=== PATIENT | female | born 1980 | race Caucasian/White ===

== ENCOUNTER 2016-07-25 00:36 | Emergency (ER) | payer MEDICAID, OTHER ==
[2016-07-25 00:36] VITALS: BMI 45.7
--- NOTE | 2016-07-25 02:13 | C.PDOC ---
History Of Present Illness A 35 year old female, whose past medical history includes chronic lower back pain s/p multiple lumbar spinal surgeries, presents to the emergency room with complaints of bilateral lower back pain for the past few days. Patient reports that the pain is constant, aching, radiating to the bilateral thighs and bilateral hips. Patient states that the pain has been worsening over the past few days. Patient notes that she was on the Fentanyl patch for a long time but her insurance no longer covers it. Patient has been off of her meds for the past few weeks and sees a pain management doctor in [facility], who is not giving her any pain meds at this time. Patient admits, similar sx in past and c/ w chronic lower back pain. Patient denies fever, chills, abdominal pain, N/V, incontinence, saddle anesthesia, UTI symptoms, denies bilateral extremity weakness, sensory/vascular deficits. AMbulate to ED for evaluation, not in any apparent distress, Time Seen by Provider: 07/25/16 01:46 Chief Complaint (Nursing): Lower Extremity Problem/Injury History Per: Patient History/Exam Limitations: no limitations Onset/Duration Of Symptoms: Days Current Symptoms Are (Timing): Still Present Severity: Mild Recent travel outside of the [place]: No Past Medical History Reviewed: Historical Data, Nursing Documentation, Vital Signs Vital Signs: Last Vital Signs Temp 98.0 F 07/25/16 01:32 Pulse 97 H 07/25/16 01:32 Resp 16 07/25/16 01:32 BP 128/85 07/25/16 01:32 Pulse Ox 99 07/25/16 02:23 - Medical History PMH: Anemia, Anxiety, Back Problems, Diabetes, HTN, Hypercholesterolemia, Chronic Kidney Disease (kidney infection), Chronic Pain Surgical History: Back Surgery (X3) - [facility] Procedures INTRODUCTION OF SERUM/TOX/VACCINE INTO MUSCLE, PERC APPROACH (04/03/15) Family History: States: Unknown Family Hx - Social History Hx Tobacco Use: No Hx Alcohol Use: No Hx Substance Use: No - Immunization History Hx Tetanus Toxoid Vaccination: No Hx Influenza Vaccination: Yes Hx Pneumococcal Vaccination: No Review Of Systems Constitutional: Negative for: Fever Gastrointestinal: Negative for: Abdominal Pain Genitourinary: Negative for: Incontinence Musculoskeletal: Positive for: Back Pain (Bilateral lower back pain radiating to the bilateral hips and thighs. ) Neurological: Negative for: Weakness, Numbness Physical Exam - Physical Exam Appears: Well, Non-toxic Skin: Normal Color, Warm, Dry Head: Atraumatic, Normacephalic Neck: Normal ROM, Supple Gastrointestinal/Abdominal: Soft, No Tenderness, No Guarding, No Rebound Back: Paraspinal Tenderness (Bilateral paraspinal lumbar tenderness) Extremity: Normal ROM, No Tenderness ED Course And Treatment - Laboratory Results Urine POC: Negative O2 Sat by Pulse Oximetry: 99 Pulse Ox Interpretation: Normal Progress Note: On re-eavluation, pt is afebrile hemodynamicaly stable. NOn- toxic. AMbulatory in ED with stable gait. Tolerate Po well in ED. ABd: benign. BAck: (-) CVA tenderness. Neurologicaly intact. UA results review and c/w UTI. pt has clinical findings c/w chronic lwoer back pain, UTI. pt advised. ref. to F/u with PMD In 2-3 days for re-eavl. return if any new changes. Medical Decision Making Medical Decision Making: Plan: -- Urine Preg -- Urinalysis Disposition Counseled Patient/Family Regarding: Studies Performed, Diagnosis, Need For Followup, Rx Given - Disposition Referrals: [facility] at [facility] [Outside] Disposition: HOME/ ROUTINE Disposition Time: 03:03 Condition: STABLE Additional Instructions: Encourage fluids Cranberry supplement Take medication as prescribed Follow up with PMD and PM in 1-2 days for re-evaluation. Return to ED if any worsening or new changes. Prescriptions: Ciprofloxacin [Cipro] 1 tab PO BID #14 tab traMADol [Ultram] 50 mg PO TID #7 tab Instructions: Urinary Tract Infection in Women (ED), Chronic Back Pain (ED) - Clinical Impression Clinical Impression: UTI (urinary tract infection), Chronic pain - Scribe Statement The provider has reviewed the documentation as recorded by the Scribshetlon Llyod All medical record entries made by the Kylieibshelton were at my direction and personally dictated by me. I have reviewed the chart and agree that the record accurately reflects my personal performance of the history, physical exam, medical decision making, and the department course for this patient. I have also personally directed, reviewed, and agree with the discharge instructions and disposition.
[2016-07-25 02:57] LABS: RBC URINE 7 /hpf (0-3); URINE BACTERIA OCC (<OCC); URINE BILIRUBIN NEGATIVE (NEGATIVE); URINE BLOOD NEGATIVE (NEGATIVE); URINE COLOR Amber (YELLOW); URINE GLUCOSE (UA) NORMAL (Normal); URINE KETONE NEGATIVE (NEGATIVE); URINE LEUKOCYTE ESTERASE 2+ Leu/uL (Negative); URINE PROTEIN 1+ mg/dL (NEGATIVE); URINE UROBILINOGEN NORMAL mg/dL (0.2-1.0); WBC URINE 35 /hpf (0-5)
[2016-07-25 03:32] VITALS: BP 120/86; PULSE 56; RESP 20; TEMP 98.1; O2SAT 97
== END 2016-07-25 03:31 | disposition home or self-care (01) ==
LOC: C.ER 00:36
DX: N39.0 Urinary tract infection, site not specified (principal); G89.29 Other chronic pain; M54.5 Low back pain

== ENCOUNTER 2016-08-10 13:19 | Emergency (ER) | payer OTHER ==
[2016-08-10 13:20] VITALS: BMI 45.7
[2016-08-10 14:52] VITALS: BP 150/91; PULSE 100; RESP 18; TEMP 98.1; O2SAT 99
[2016-08-10 15:25] LABS: RBC URINE 17 /hpf (0-3); URINE BILIRUBIN NEGATIVE (NEGATIVE); URINE BLOOD 1+ (NEGATIVE); URINE COLOR Yellow (YELLOW); URINE GLUCOSE (UA) NORMAL (Normal); URINE KETONE TRACE mg/dL (NEGATIVE); URINE LEUKOCYTE ESTERASE 2+ Leu/uL (Negative); URINE PROTEIN 2+ mg/dL (NEGATIVE); URINE UROBILINOGEN NORMAL mg/dL (0.2-1.0); WBC URINE 38 /hpf (0-5)
--- NOTE | 2016-08-10 15:41 | C.PDOC ---
History Of Present Illness 35 yo female w/PMHx of HTN, NIDDM, morbid obesity come in for evaluation of Left flank pain gradually developed since yesterday associated with urinary frequency, hesitance. Otherwise, pt denies fever, chills, headache, dizziness, neck pain, sore throat, CP, SOB, dyspnea, diaphoresis, abd. pain, V/D, hematuria , vaginal irritation or discharge. Ambulate to ED for evaluation, not in any apparent distress. Time Seen by Provider: 08/10/16 15:12 Chief Complaint (Nursing): Female Genitourinary History Per: Patient History/Exam Limitations: no limitations Onset/Duration Of Symptoms: Days (1) Past Medical History Reviewed: Historical Data, Nursing Documentation, Vital Signs Vital Signs: Last Vital Signs Temp 98.1 F 08/10/16 14:50 Pulse 100 H 08/10/16 14:50 Resp 18 08/10/16 14:50 BP 150/91 H 08/10/16 14:50 Pulse Ox 99 08/10/16 16:32 - Medical History PMH: Anemia, Anxiety, Back Problems, Diabetes, HTN, Hypercholesterolemia, Chronic Kidney Disease (kidney infection), Chronic Pain Surgical History: Back Surgery (X3) - [facility] Procedures INTRODUCTION OF SERUM/TOX/VACCINE INTO MUSCLE, PERC APPROACH (04/03/15) Family History: States: No Known Family Hx - Social History Hx Tobacco Use: No Hx Alcohol Use: No Hx Substance Use: No - Immunization History Hx Tetanus Toxoid Vaccination: No Hx Influenza Vaccination: Yes Hx Pneumococcal Vaccination: No Review Of Systems Except As Marked, All Systems Reviewed And Found Negative. Constitutional: Negative for: Fever, Chills ENT: Positive for: Throat Pain (Sore throat) Cardiovascular: Negative for: Chest Pain Respiratory: Negative for: Shortness of Breath Gastrointestinal: Negative for: Vomiting, Abdominal Pain, Diarrhea Genitourinary: Negative for: Hematuria, Vaginal Discharge Musculoskeletal: Positive for: Back Pain (Left flank pain ). Negative for: Neck Pain Neurological: Negative for: Headache, Dizziness Physical Exam - Physical Exam Appears: Well, No Acute Distress Skin: Normal Color, Warm, Dry Eye(s): bilateral: Normal Inspection, PERRL, EOMI Nose: Normal Throat: Normal Neck: Normal Cardiovascular: Rhythm Regular Respiratory: Normal Breath Sounds Gastrointestinal/Abdominal: Normal Exam Back: Normal Inspection Extremity: Normal ROM ED Course And Treatment - Laboratory Results Urine POC: Negative O2 Sat by Pulse Oximetry: 99 Pulse Ox Interpretation: Normal Progress Note: On re-eval, pt is afebrile, hemodynamicaly stable. NOn-toxic. Tolerate PO well in ED. ENT: no acute findings. Neck: (-) meninegal sign . Lungs : CTA B/L, BS equal B/L. Abd: benign. Back: (-) CVA tenderness. Neurologicaly intact. UA results review and c/w UTI, trace ketones, Glu (-). Pt has clinical findings c/w UTI, hx of NIDDM. Pt received tx in ED with mod improvement in sx. Pt advised and ref. to F/u with PMD in 2-3 days for re-eval. return if any new changes. Medical Decision Making Medical Decision Making: PLAN: * HCG Urine * Urinalysis * Cipro PO * Pyridium PO * Tramadol PO Disposition Counseled Patient/Family Regarding: Studies Performed, Diagnosis, Need For Followup, Rx Given - Disposition Referrals: [facility] [Outside] [facility] [Outside] Disposition: HOME/ ROUTINE Disposition Time: 15:39 Condition: STABLE Additional Instructions: Encourage fluids Take medication as prescribed Follow up with PMD, [employer] In 2-3 days for re-evaluation. Return to ED if any worsening or new changes. Prescriptions: Ciprofloxacin [Cipro] 1 tab PO BID #14 tab Cranberry 500 mg PO DAILY #14 capsule Phenazopyridine [Phenazopyridine HCl] 100 mg PO Q12 #6 tab Instructions: Urinary Tract Infection in Women (ED) - Clinical Impression Clinical Impression: UTI (urinary tract infection) - PA / HOSPITALITY AMBASSADOR / Resident Statement MD/DO has reviewed & agrees with the documentation as recorded. - Scribe Statement The provider has reviewed the documentation as recorded by the Scribe Eugenia Deleno All medical record entries made by the Scribe were at my direction and personally dictated by me. I have reviewed the chart and agree that the record accurately reflects my personal performance of the history, physical exam, medical decision making, and the department course for this patient. I have also personally directed, reviewed, and agree with the discharge instructions and disposition.
== END 2016-08-10 15:56 | disposition home or self-care (01) ==
LOC: C.ER 13:19
DX: N39.0 Urinary tract infection, site not specified (principal)

== ENCOUNTER 2016-08-10 22:14 | Emergency (ER) | payer OTHER ==
[2016-08-10 22:15] VITALS: BMI 45.7
[2016-08-10 22:36] VITALS: TEMP 99.2; O2SAT 97
[2016-08-10 23:35] VITALS: BP 123/72
[2016-08-10 23:40] VITALS: PULSE 99; RESP 18
--- NOTE | 2016-08-10 23:49 | C.PDOC ---
Time Seen by Provider: 08/10/16 23:42 Chief Complaint (Nursing): Palpitations Past Medical History Vital Signs: Last Vital Signs Temp 99.2 F 08/10/16 22:24 Pulse 99 H 08/10/16 23:30 Resp 18 08/10/16 23:30 BP 123/72 08/10/16 23:00 Pulse Ox 97 08/10/16 22:24 - Medical History PMH: Anemia, Anxiety, Back Problems, Diabetes, HTN, Hypercholesterolemia, Chronic Kidney Disease (kidney infection), Chronic Pain Surgical History: Back Surgery (X3) - [facility] Procedures INTRODUCTION OF SERUM/TOX/VACCINE INTO MUSCLE, PERC APPROACH (04/03/15) Family History: States: Unknown Family Hx - Social History Hx Tobacco Use: No Hx Alcohol Use: No Hx Substance Use: No - Immunization History Hx Tetanus Toxoid Vaccination: No Hx Influenza Vaccination: Yes Hx Pneumococcal Vaccination: No ED Course And Treatment O2 Sat by Pulse Oximetry: 97 Disposition - Disposition Disposition: LEFT W/O BEING SEEN - ER ONLY Disposition Time: 00:00 Condition: UNKNOWN - Clinical Impression Clinical Impression: Diagnosis unknown Addendum Addendum: 08/10/16 23:46 Pt left without being seen by me Any other information on this chart was not recorded by me, I am unable to removed my name from the charge due to [employer] issues
== END 2016-08-10 23:30 | disposition left against medical advice (07) ==
LOC: C.ER 22:14
DX: R00.2 Palpitations (principal); Z02.9 Encounter for administrative examinations, unspecified

== ENCOUNTER 2016-08-13 05:27 | Emergency (ER) | payer OTHER ==
[2016-08-13 05:27] VITALS: BMI 45.7
[2016-08-13] MEDS ORDERED: Sodium Chloride 0.9% 1,000 ML IV STA (05:57)
[2016-08-13] MEDS ORDERED: Sodium Chloride 0.9% 1,000 ML ONE (05:57)
[2016-08-13 06:08] LABS: RBC URINE 4 /hpf (0-3); URINE BACTERIA OCC (<OCC); URINE BILIRUBIN NEGATIVE (NEGATIVE); URINE BLOOD NEGATIVE (NEGATIVE); URINE COLOR Amber (YELLOW); URINE GLUCOSE (UA) NORMAL (Normal); URINE KETONE 1+ mg/dL (NEGATIVE); URINE LEUKOCYTE ESTERASE 2+ Leu/uL (Negative); URINE PROTEIN 1+ mg/dL (NEGATIVE); WBC URINE 20 /hpf (0-5)
[2016-08-13 06:09] LABS: BASO % 0.6 % (0.0-2.0); EOS % 0.1 % (0.0-4.0); HEMATOCRIT 29.5 % (34.0-47.0); LYMPH % 24.5 % (20.0-40.0); MEAN CELL VOLUME 70.1 fL (81.0-99.0); MEAN PLATELET VOLUME 8.1 fL (7.2-11.7); MONO # 0.5 K/uL (0.0-0.8); MONO % 6.6 % (0.0-10.0)
[2016-08-13 06:26] LABS: CHLORIDE 100 mmol/L (98-107); POTASSIUM 3.4 mmol/L (3.6-5.2); SODIUM 140 mmol/L (132-148)
[2016-08-13 06:28] LABS: BILIRUBIN,TOTAL 0.7 mg/dL (0.2-1.3); CARBON DIOXIDE 24 mmol/L (22-30); GFR AFRICAN-AMERICAN > 60
[2016-08-13 06:29] LABS: ALB/GLOB RATIO 1.4 (1.0-2.1); ALKALINE PHOSPHATASE 85 U/L (38-126); ALT/SGPT 22 U/L (9-52); AST/SGOT 33 U/L (14-36); BLOOD UREA NITROGEN 9 mg/dL (7-17); CALCIUM 8.9 mg/dl (8.6-10.4); GLUCOSE,RANDOM 135 mg/dL (65-105); TOTAL PROTEIN 8.6 g/dL (6.3-8.3)
--- NOTE | 2016-08-13 06:43 | C.PDOC ---
History Of Present Illness 35 year old pt presents to ED c/o vomiting that began yesterday. Pt reports vomiting started after taking Cipro and Pyridium after her previous visit at [facility] ED. Pt reports that she diagnosed with an UTI when she was seen Wednesday at [facility] ED. Pt denies fever, chills, diarrhea, abdominal pain, hematemesis, dizziness, or any other complaints. Pt also notes chronic lower back pain. Time Seen by Provider: 08/13/16 05:46 Chief Complaint (Nursing): GI Problem History Per: Patient History/Exam Limitations: no limitations Onset/Duration Of Symptoms: Days Current Symptoms Are (Timing): Still Present Severity: Mild Associated Symptoms: denies: Fever, Chills, Diarrhea Past Medical History Reviewed: Historical Data, Nursing Documentation, Vital Signs Vital Signs: Last Vital Signs Temp 98.8 F 08/13/16 05:35 Pulse 75 08/13/16 05:35 Resp 14 08/13/16 05:35 BP 144/85 08/13/16 05:35 Pulse Ox 97 08/13/16 06:50 - Medical History PMH: Anemia, Anxiety, Back Problems, Diabetes, HTN, Hypercholesterolemia, Chronic Kidney Disease (kidney infection), Chronic Pain Surgical History: Back Surgery (X3) - [facility] Procedures INTRODUCTION OF SERUM/TOX/VACCINE INTO MUSCLE, PERC APPROACH (04/03/15) Family History: States: Unknown Family Hx - Social History Hx Tobacco Use: No Hx Alcohol Use: No Hx Substance Use: No - Immunization History Hx Tetanus Toxoid Vaccination: No Hx Influenza Vaccination: Yes Hx Pneumococcal Vaccination: No Review Of Systems Except As Marked, All Systems Reviewed And Found Negative. Constitutional: Negative for: Fever, Chills Gastrointestinal: Positive for: Vomiting. Negative for: Diarrhea, Hematemesis Neurological: Negative for: Dizziness Physical Exam - Physical Exam Appears: Non-toxic, No Acute Distress Skin: Warm, Dry Head: Atraumatic, Normacephalic Eye(s): bilateral: Normal Inspection Cardiovascular: Rhythm Regular, No Murmur Respiratory: Normal Breath Sounds, No Rales, No Rhonchi, No Wheezing Gastrointestinal/Abdominal: Soft, No Tenderness Neurological/Psych: Oriented x3, Normal Speech, Normal Cognition ED Course And Treatment - Laboratory Results Result Diagrams: 08/13/16 06:06 08/13/16 06:06 O2 Sat by Pulse Oximetry: 97 (Room air) Pulse Ox Interpretation: Normal Progress Note: Plans: IV fluids, zofran were given. Pt is to be reassess and disposition. Disposition Counseled Patient/Family Regarding: Diagnosis - Disposition Disposition Time: 07:02 Condition: STABLE - Clinical Impression Clinical Impression: UTI (urinary tract infection) - Scribe Statement The provider has reviewed the documentation as recorded by the Scribe Dmitry fitch All medical record entries made by the Scribe were at my direction and personally dictated by me. I have reviewed the chart and agree that the record accurately reflects my personal performance of the history, physical exam, medical decision making, and the department course for this patient. I have also personally directed, reviewed, and agree with the discharge instructions and disposition. Physician Patient Turnover Patient Signed Over To: Annmarie Ghotra Handoff Comments: Pending Reevaluation and dispo
[2016-08-13 07:27] VITALS: PULSE 74
[2016-08-13 08:39] VITALS: BP 141/91; RESP 20; TEMP 98.3; O2SAT 100
== END 2016-08-13 08:37 | disposition home or self-care (01) ==
LOC: C.ER 05:27
DX: N39.0 Urinary tract infection, site not specified (principal)
CPT/HCPCS: 80053; 81001; 83690; 85025; 96361; 96374; 96375; 99285; J1885; J2405; J7040

== ENCOUNTER 2017-08-24 05:43 | Inpatient (IN) | payer MEDICAID, OTHER ==
[2017-08-24 05:44] VITALS: BMI 45.7
--- NOTE | 2017-08-24 06:09 | C.PDOC ---
History Of Present Illness 36 y/o female with chronic low back pain, presents to the ED with multiple complaints. Patient reports her back pain has been maintained on duragesic patches for the past 1.5 years. She states there was a miscommunication with her PMD and she has been off the patches for the past week. Now presenting with withdrawal symptoms including anxiety, chest tightness, generalized muscle aches , inability to focus, sweats. (Christina Llamas) History Per: Patient History/Exam Limitations: no limitations Onset/Duration Of Symptoms: Hrs Current Symptoms Are (Timing): Still Present Time Seen by Provider: 08/24/17 06:00 Chief Complaint (Nursing): Chest Pain Past Medical History Reviewed: Historical Data, Nursing Documentation, Vital Signs - Medical History PMH: Anemia, Anxiety, Back Problems, Diabetes, HTN, Hypercholesterolemia, Chronic Kidney Disease (kidney infection), Chronic Pain Surgical History: Back Surgery (X3) Family History: States: Unknown Family Hx - Social History Hx Tobacco Use: No Hx Alcohol Use: No Hx Substance Use: No - Immunization History Hx Tetanus Toxoid Vaccination: No Hx Influenza Vaccination: Yes Hx Pneumococcal Vaccination: No Vital Signs: Last Vital Signs Temp 98.6 F 08/28/17 06:29 Pulse 83 08/28/17 06:29 Resp 18 08/28/17 06:29 BP 118/66 08/28/17 06:29 Pulse Ox 97 08/28/17 06:29 - [facility] Procedures INTRODUCTION OF SERUM/TOX/VACCINE INTO MUSCLE, PERC APPROACH (04/03/15) Review Of Systems Except As Marked, All Systems Reviewed And Found Negative. Constitutional: Positive for: Sweats, Other (Generalized myalgias, especially to the abdomen, chest, and thighs). Negative for: Fever, Chills Cardiovascular: Positive for: Chest Pain Psych: Positive for: Anxiety, Withdrawal (from opiates) Physical Exam - Physical Exam Appears: Other (Writhing on stretcher, very anxious appearing, morbidly obese) Skin: Warm, Dry, No Diaphoretic Head: Atraumatic, Normacephalic Eye(s): bilateral: Normal Inspection, PERRL, EOMI Nose: Normal Oral Mucosa: Moist Neck: Normal ROM, Supple Chest: Symmetrical Cardiovascular: Rhythm Regular, No Murmur, Other (S1,S2 are wnl) Respiratory: No Rales, No Rhonchi, No Wheezing, Other (CTA bilaterally) Gastrointestinal/Abdominal: Soft, No Tenderness, Guarding (voluntary), No Rebound Extremity: Bilateral: Atraumatic (with no evidence of IVDA), Normal Color And Temperature, Normal ROM Neurological/Psych: Oriented x3, Normal Speech, No Other (focal deficits) ED Course And Treatment - Laboratory Results Result Diagrams: 08/25/17 08:01 08/26/17 11:10 ECG: Interpreted By Me, Viewed By Me ECG Rhythm: Sinus Rhythm (at 106 bpm, with nonspecific ST/T wave changes, no ectopy) O2 Sat by Pulse Oximetry: 97 (RA) Pulse Ox Interpretation: Normal Medical Decision Making Medical Decision Making: Impression: Opioid withdrawal Plan: * Clonidine 0.1 mg P * Ativan 2 mg IV * Compazine 10 mg IM * IVF hydration (Christina Llamas) Disposition - Disposition Disposition Time: 06:46 - Disposition Disposition: HOME/ ROUTINE Condition: FAIR - Clinical Impression Clinical Impression: Chest pain - Scribe Statement The provider has reviewed the documentation as recorded by the Scribe (Ktae Banuelos) - Scribe Statement Provider Attestation: All medical record entries made by the Scribe were at my direction and personally dictated by me. I have reviewed the chart and agree that the record accurately reflects my personal performance of the history, physical exam, medical decision making, and the department course for this patient. I have also personally directed, reviewed, and agree with the discharge instructions and disposition. (Christina Llamas) Addendum Addendum: 08/24/17 08:05 Patient endorsed to me by Dr. Llamas at the end of his shift. Patient with Chronic back pain, disk surgeries on duragesic patches, recently not approved by her PMD. Patient flailing in the ED c/o feeling jittery, has not had patches for a week. States her "kidney hurts", states recent kidney infection, no fever, no nvd, no abdominal pain. On exam: obese chest clear restless cooperative Plan Ativan offer detox, evaluate UA/Labs (Christina Anna)
[2017-08-24] MEDS ORDERED: Sodium Chloride 0.9% 1,000 ML ONE ×2 (06:17→09:44)
[2017-08-24] MEDS: Sodium Chloride 0.9% 1,000 ML IV ONE ×2 (06:32→07:45)
[2017-08-24] MEDS ORDERED: Sodium Chloride 0.9% 1,000 ML IV ONE (08:03)
[2017-08-24 08:18] LABS: BASO % 0.2 % (0.0-2.0); HEMOGLOBIN 9.1 g/dL (11.0-16.0); LYMPH # 0.8 K/uL (1.0-4.3); LYMPH % 6.4 % (20.0-40.0); MEAN CELL VOLUME 73.1 fL (81.0-99.0); MEAN CORPUSCULAR HEMOGLOBIN 23.3 pg (27.0-31.0); MEAN CORPUSCULAR HGB CONC 31.8 g/dL (33.0-37.0); MEAN PLATELET VOLUME 8.7 fL (7.2-11.7); MONO # 0.4 K/uL (0.0-0.8); MONO % 2.9 % (0.0-10.0); NEUT # 11.7 K/uL (1.8-7.0); NEUT % 90.5 % (50.0-75.0); NRBC % 0.1 % (0.0-2.0); PLATELET COUNT 635 K/uL (130-400); RBC 3.93 Mil/uL (3.80-5.20); RED CELL DISTRIBUTION WIDTH 18.7 % (11.5-14.5)
[2017-08-24 08:19] LABS: WHITE BLOOD COUNT 12.9 K/uL (4.8-10.8)
[2017-08-24 08:38] LABS: ALB/GLOB RATIO 1.1 (1.0-2.1); ALBUMIN 4.6 g/dL (3.5-5.0); ALT/SGPT 14 U/L (9-52); AST/SGOT 25 U/L (14-36); BLOOD UREA NITROGEN 14 mg/dL (7-17); CALCIUM 9.7 mg/dl (8.6-10.4); GFR AFRICAN-AMERICAN > 60; GFR NON-AFRICAN AMERICAN > 60
[2017-08-24 08:50] LABS: HCG,QUALITATIVE URINE NEGATIVE (NEGATIVE)
[2017-08-24 08:52] LABS: LYMPHOCYTE 7 % (20-40); MONOCYTE 2 % (0-10); NEUTROPHIL 91 % (50-75); TOTAL CELLS COUNTED 100
[2017-08-24 08:53] LABS: ANISOCYTOSIS MODERATE; HYPOCHROMIC MODERATE; OVALOCYTES SLIGHT; PLATELET ESTIMATE INCREASED (NORMAL)
[2017-08-24 09:08] LABS: SQUAMOUS EPITHIAL 11 /hpf (0-5); URINE BACTERIA MANY (<OCC); URINE BILIRUBIN NEGATIVE (NEGATIVE); URINE BLOOD NEGATIVE (NEGATIVE); URINE CALCIUM OXALATE CRYSTALS OCC /hpf (<OCC); URINE CLARITY Hazy (Clear); URINE COLOR Yellow (YELLOW); URINE GLUCOSE (UA) NORMAL (Normal); URINE LEUKOCYTE ESTERASE TRACE Leu/uL (Negative); URINE PROTEIN 2+ mg/dL (NEGATIVE); URINE UROBILINOGEN NORMAL mg/dL (0.2-1.0)
[2017-08-24 09:12] LABS: BARBITURATES, UR NEGATIVE (NEGATIVE); BENZODIAZEPINES, UR NEGATIVE (NEGATIVE); OPIATES, UR NEGATIVE (NEGATIVE); PHENCYCLIDINE, UR NEGATIVE (NEGATIVE)
--- NOTE | 2017-08-24 12:24 | PCM.BM ---
<Yolanda Acuna - Last Filed: 08/24/17 12:23> Treatment Plan Problems - Problems identified on initial assessmt potential for opiate withdrawals Date Initiated: 08/24/17 Assessment reference: NA Status: Active Treatment assets and liabiliti Patient Assests: adapts well, cooperative, motivated, ADL independent, good support system, negotiates basic needs Patient Liabilities: physical pain, substance abuse, medical problems - Milieu Protocol Maintain good personal hygiene: daily Encourage regular showers, daily Remind patient to perform daily oral care, daily Assist patient to perform ADL's Conduct patient checks and document Observation sheet: Q15 minutes Maintain personal safety: every shift Educate patient to report safety concerns to staff, every shift Monitor environment for contraband/sharps Medication safety: Monitor for expected outcome, potential side effects: every shift, Assess barriers to learning: every shift, Assess readiness for medication education: every shift <Aissatou Hoyt - Last Filed: 08/24/17 13:16> - Diagnosis (1) Opiate dependence Status: Acute Interventions: 08/24/17 13:20 * Assess 7x/week regarding severity of withdrawal * Educate regarding risks, benefits, side effects and alternatives of medications * Use Motivational Interviewing for abstinence * Use CBT for relapse prevention * Medication management for withdrawal symptoms * Encourage medication assisted treatment * <Nena Al - Last Filed: 08/26/17 08:14> Family Contact Family involvement: Famliy/SO not involved - Goals for Treatment Patient goals for treatment: Complete detox and transition to IOP. Discharge/Continuing Care - Education Needs Education Needs: Patient Medication, Patient Diagnosis/Disease Process, Patient Coping Skills, Patient Anger Management skills, Patient Placement options, Patient Community resources - Discharge Discharge Criteria: No longer exhibiting s/s of withdrawal, Reduction of target symptoms Discharge to:: Home - Treatment Team Participation Patient/Family/SO Statement: 08/26/17 08:09 "I wanna go home to my ...I'll go to IOP". Discussed with Family/SO: No Was Patient/Family/SO present at Treatment Team Meeting: Yes
--- NOTE | 2017-08-24 12:47 | PCM.PSYCH ---
Initial Psychiatric Evaluation - Initial Psychiatric Evaluation Type of Admission: Voluntary Legal Status: Capacity Chief Complaint (in patient's own words): "Too much pain" History of Present Illness and Precipitating Events: The pt is seen, chart reviewed, case discussed She is a 36 y/o WF, with 4 children (16, 13, 12 and 9 y/o) who are with their father now. She lives with and children. Unemployed Poor historian due to extreme discomfort due to opioid withdrawal She denies illicit drug or alcohol use or buying from the streets. She started with opiate painkillers 6 years ago due to back surgery and since then has been using increasingly. She was kept on Fentanyl (filled in June)and Oxycodone 15 mg (#120 filled 3 weeks ago). She admits to oversusing but b/c of pain and also her doctor did not renew her fentanyl and os she is in withdrawal now. She cannot even sit still. No past detox or rehab Denies all drugs and alcohol Past psych hx: Depression and anxiety. Takes xanax 0.5 daily, no admissions Medical hx: DM, HTN?, disc hernia Family psych hx: Mother also had depression/anxiety Current Medications: Active Medications Generic Name Dose Route Start Last Admin Trade Name Freq PRN Reason Stop Dose Admin Al Hydrox/Mg Hydrox/Simethicone 30 ml 08/24/17 12:43 Maalox 30 Ml PO TID PRN Indigestion / Heartburn Clonidine HCl 0.1 mg 08/24/17 12:43 Catapres PO Q8 PRN COWS Score More or Equal to 5 Loperamide HCl 2 mg 08/24/17 12:43 Imodium PO Q8 PRN Diarrhea Metformin HCl 500 mg 08/24/17 18:00 Glucophage PO BID RANDAL Metoprolol Tartrate 50 mg 08/24/17 18:00 Lopressor PO BID RANDAL Ondansetron HCl 4 mg 08/24/17 12:43 Zofran Tab PO Q8 PRN Nausea/Vomiting Past Psychiatric History - Past Psychiatric History Previous Treatment History: None Pertinent Medical Hx (Current Medical&Sleep Prob, Allergies): Allergies Allergy/AdvReac Type Severity Reaction Status Date / Time No Known Allergies Allergy Verified 08/24/17 06:00 metFORMIN [glucOPHAGE] 500 mg PO BID 02/26/16 Metoprolol Tartrate [Lopressor] 50 mg PO BID #60 tab 05/27/16 Famotidine [Pepcid] 20 mg PO DAILY #14 tab 08/13/16 Amitriptyline 08/24/17 Xanax 08/24/17 Zolpidem [Ambien] 5 mg PO HS 08/24/17 Review of Systems - Gastrointestinal Gastrointestinal: Abdominal Pain, Cramping - Musculoskeletal Musculoskeletal: Back Pain, Myalgias - Neurological Neurological: Tremor - Psychiatric Psychiatric: Abnormal Sleep Pattern, Anxiety, Change in Appetite, Difficulty Concentrating, Irritability. absent: Hallucinations, Homicidal Ideation, Paranoia, Suicidal Ideation Mental Status Examination - Personal Presentation Personal Presentation: Looks stated age (obese, unkempt, in some agony) - Affect Affect: Constricted - Motor Activity Motor Activity: Other (restless) - Reliability in Providing Information Reliability in Providing Information: Good - Speech Speech: Organized - Mood Mood: Anxious - Formal Thought Process Formal Thought Process: No Impairment - Cognitive Functions Orientation: Person, Place, Situation, Time Sensorium: Alert Attention/Concentration: Easily distracted Estimate of Intelligence: Average Judgement: Intact, as evidence by: Insight regarding need for hospitalization Memory: Recent intact, as evidence by: Ability to recall events of the day, Remote intact, as evidenced by: Abilit to recall sig. life events - Risk Risk: Withdrawal, Diminished functioning - Strength & Assets Inventory Strength & Assets Inventory: Family support, Cooperative - Limitations Limitations: Other DSM 5 DX - DSM 5 DSM 5 Diagnosis: Opioid withdrawal Opioid use d/o- severe Anxiety d/o - unspecified - Recommended/Plan of Treatment Treatment Recommendations and Plan of Treatment: Methadone detox As needed medications Gabapentin for augmentation if needed All risks, benefits and alternatives of medications, including no medications, discussed and the patient understood and agreed. Attend groups and activities Supportive therapy and psychoeducation ID for abstinence CBT for relapse prevention Encourage MAT Refer to rehab or IOP Attend self-help groups as well ID for smoking cessation and patch if needed Labs 34 min Projected ELOS: 5 days Prognosis: good with treatment Discharge Plan and Discharge Criteria: Refer to a pain dr for non-opioid options IOP/MAT Criteria: No wdw sxs
[2017-08-25] MEDS: Aluminum Hydroxide/Magnesium Hydroxide Susp (30 mL) PO PRN ×2 (05:29→22:05)
[2017-08-25 08:08] LABS: BASO % 0.2 % (0.0-2.0); HEMOGLOBIN 9.5 g/dL (11.0-16.0); LYMPH # 1.4 K/uL (1.0-4.3); LYMPH % 15.8 % (20.0-40.0); MEAN CELL VOLUME 73.1 fL (81.0-99.0); MEAN CORPUSCULAR HEMOGLOBIN 23.2 pg (27.0-31.0); MEAN CORPUSCULAR HGB CONC 31.8 g/dL (33.0-37.0); MEAN PLATELET VOLUME 8.1 fL (7.2-11.7); MONO # 0.6 K/uL (0.0-0.8); MONO % 6.7 % (0.0-10.0); NEUT # 6.9 K/uL (1.8-7.0); NEUT % 77.3 % (50.0-75.0); NRBC % 0.1 % (0.0-2.0); RBC 4.1 Mil/uL (3.80-5.20); RED CELL DISTRIBUTION WIDTH 19.1 % (11.5-14.5)
[2017-08-25 08:20] LABS: ALB/GLOB RATIO 1.1 (1.0-2.1); ALBUMIN 4.4 g/dL (3.5-5.0); ALT/SGPT 8 U/L (9-52); AST/SGOT 24 U/L (14-36); BLOOD UREA NITROGEN 8 mg/dL (7-17); CALCIUM 9.5 mg/dl (8.6-10.4); GFR AFRICAN-AMERICAN > 60; GFR NON-AFRICAN AMERICAN > 60; HDL CHOLESTEROL 32 mg/dL (30-70)
[2017-08-25 08:31] LABS: LDL CHOLESTEROL 203 mg/dL (0-129)
[2017-08-25] MEDS: Pantoprazole 20 mg EC Tab PO SCH (12:22)
--- NOTE | 2017-08-25 14:10 | PCM.PYCHPN ---
Psychiatric Progress Note - Psychiatric Progress Note Patient seen today, length of contact: 16 minutes Patient Chief Complaint: "I have no appetite." Problems Identified/Issues Discussed: The pt is seen, chart reviewed, case discussed with staff. Patient states she has heartburn. She also states she has no appetite. According to the patient, every time she eats, she vomits. Support given, CBT and LA used briefly No new symptoms reported, improving slowly and needs more time No SEs from medications, risks discussed. After care discussed Medication Change: Yes Medical Record Reviewed: Yes Mental Status Examination - Cognitive Function Orientation: Person, Place, Situation, Time Memory: Intact Attention: WNL Concentration: WNL Association: WNL Fund of Knowledge: WNL - Mood Mood: Neutral - Affect Affect: Flat - Speech Speech: Soft - Formal Thought Process Formal Thought Process: No Impairment - Suicidal Ideation Suicidal Ideation: No - Homicidal Ideation Homicidal Ideation: No Goal/Treatment Plan - Goal/Treatment Plan Need for Continued Stay: Discharge may exacerbated symptoms Progress Toward Problem(s) and Goals/Treatment Plan: Continue methadone taper Continue medications Protonix started for heartburn Support and psychoeducation daily Attend groups and activities daily After care planning by LÓPEZ
--- NOTE | 2017-08-25 18:18 | PCM.FALL ---
Post Fall Progress Note - Post Fall Fall Date: 08/25/17 Fall Time: 17:26 Description of Fall: As per nursing, patient was heading to the water machine to get a drink of water when she syncopized. Patient landed on her buttocks and sat on the floor for a while. Patient's BP at the time was 77/46. Patient stood up and sat on the chair without difficulty and BP was 97/52. Patient was completely oriented to location, time and place. Patient reports that she is well and suffered no injury. Patient was responsive and talking in complete sentences post-fall. - Post Fall Exam Vital Sign: Temp Pulse Resp BP Pulse Ox 99 F 80 18 90/60 L 98 08/25/17 17:30 08/25/17 17:45 08/25/17 17:30 08/25/17 17:45 08/25/17 17:30 Skull Exam: Negative for: Scalp wound, Scalp hematoma Eye Exam: Positive for: Pupils equal, Pupils reactive Ear Exam: Negative for: Discharge, Bleeding Nose Exam: Negative for: Discharge, Bleeding Skin Exam: Negative for: Colour, Lacerations, Grazes, Bruising Mouth Exam: Negative for: Tongue bitten, Teeth dislodge Neck Exam: Negative for: Tenderness, Tingling, Weakness Spinal Exam: Negative for: Tenderness, Tingling, Weakness Chest Exam: Negative for: Difficulty breathing, Tenderness in collar bones, Tenderness in ribs Abdomen Exam: Negative for: Tenderness Pelvic Exam: Negative for: Tenderness, Hematuria Arm Exam: Negative for: Deformity, Alteration in range of movement Leg Exam: Negative for: Deformity, Alteration in range of movement Impression/Plan: Hospitalist attending button tufting machine operator was notified Plans for PO challenge Trendelenburg position Recheck BP in an hour. Hold evening dose BP meds
[2017-08-26] MEDS: Potassium Chloride 20 mEq ER Tab PO SCH (09:56)
[2017-08-26] MEDS: Pantoprazole 20 mg EC Tab PO SCH (09:56)
[2017-08-26 11:38] LABS: ALB/GLOB RATIO 1.2 (1.0-2.1); ALBUMIN 4.4 g/dL (3.5-5.0); ALT/SGPT 12 U/L (9-52); AST/SGOT 28 U/L (14-36); BLOOD UREA NITROGEN 13 mg/dL (7-17); CALCIUM 9.1 mg/dl (8.6-10.4); GFR AFRICAN-AMERICAN > 60; GFR NON-AFRICAN AMERICAN > 60
--- NOTE | 2017-08-26 11:49 | PCM.PYCHPN ---
Psychiatric Progress Note - Psychiatric Progress Note Patient seen today, length of contact: 18 minutes Patient Chief Complaint: "I feel OK now" Problems Identified/Issues Discussed: The pt is seen, chart reviewed, case discussed with staff. Patient fell yesterday evening after getting up from a seated position. Patient was found to have low blood pressure. Patient states she feels okay today but slightly sore from the fall. Support given, CBT and DC used briefly No new symptoms reported, improving slowly and needs more time No SEs from medications, risks discussed. Medication Change: Yes (detox changes daily) Medical Record Reviewed: Yes Mental Status Examination - Cognitive Function Orientation: Person, Place, Situation, Time Memory: Intact Attention: WNL Concentration: WNL Association: WNL Fund of Knowledge: WNL - Mood Mood: Neutral - Affect Affect: Constricted - Speech Speech: Soft - Formal Thought Process Formal Thought Process: No Impairment - Suicidal Ideation Suicidal Ideation: No - Homicidal Ideation Homicidal Ideation: No Goal/Treatment Plan - Goal/Treatment Plan Need for Continued Stay: Discharge may exacerbated symptoms, Severe functional impairment Progress Toward Problem(s) and Goals/Treatment Plan: Continue methadone taper How to avoid falls discussed again Support and psychoeducation daily Risks of meds discussed again Attend groups and activities daily After care planning by LÓPEZ DRISCOLL
[2017-08-26 11:53] LABS: FREE T4 1.03 ng/dL (0.78-2.19)
[2017-08-26] MEDS: Aluminum Hydroxide/Magnesium Hydroxide Susp (30 mL) PO PRN (23:45)
[2017-08-27] MEDS: Potassium Chloride 20 mEq ER Tab PO SCH (09:26)
[2017-08-27] MEDS: Pantoprazole 20 mg EC Tab PO SCH (09:26)
--- NOTE | 2017-08-27 13:27 | PCM.PYCHPN ---
Psychiatric Progress Note - Psychiatric Progress Note Patient seen today, length of contact: 18 minutes Patient Chief Complaint: "I feel still withdrawing" Problems Identified/Issues Discussed: The pt is seen, chart reviewed, case discussed with staff. Somewhat better but still has wdw sxs, dizziness and low mood She wants to continue pain tx BUT w/o opioids from now on. She says if that fails she will consider methadone or something "safe" She is in bed a lot [place] used, support given After care discussed Medication Change: Yes (detox changes daily) Medical Record Reviewed: Yes Mental Status Examination - Cognitive Function Orientation: Person, Place, Situation, Time Memory: Intact Attention: WNL Concentration: WNL Association: WNL Fund of Knowledge: WNL - Mood Mood: Neutral - Affect Affect: Constricted - Speech Speech: Soft - Formal Thought Process Formal Thought Process: No Impairment - Suicidal Ideation Suicidal Ideation: No - Homicidal Ideation Homicidal Ideation: No Goal/Treatment Plan - Goal/Treatment Plan Need for Continued Stay: Discharge may exacerbated symptoms, Severe functional impairment Progress Toward Problem(s) and Goals/Treatment Plan: Continue methadone taper How to avoid falls discussed again Support and psychoeducation daily Risks of meds discussed again Attend groups and activities daily After care planning by LÓPEZ garcia IOP and non-opioid pain
[2017-08-27] MEDS ORDERED: Ergocalciferol 50,000 Intl Units Cap PO SCH (13:30)
[2017-08-28 06:30] VITALS: O2SAT 97
[2017-08-28 09:43] VITALS: BP 117/83; PULSE 119; RESP 20; TEMP 98.3
[2017-08-28] MEDS: Potassium Chloride 20 mEq ER Tab PO SCH (10:00)
[2017-08-28] MEDS: Pantoprazole 20 mg EC Tab PO SCH (10:00)
--- NOTE | 2017-08-28 10:16 | PCM.PYCHDC ---
Mental Status Examination - Mental Status Examination Orientation: Person Discharge Summary - Discharge Note Consultations:: List each consultation separately and include: 1. Reason for request. 2. Findings. 3. Follow-up Summary of Hospital Course include:: 1. Description of specific treatment plan utilized for patients during their course of treatmen. 2. Summarize the time- course for resolution of acute symptoms and/or regressed behaviors. 3. Describe issues identified and worked on during hospitalization. 4. Describe medication utilized. 5. Describe medical problems identified and treated. 6. Reassessment of suicide risk Summary of Hospital Course: The pt is seen, chart reviewed, case discussed She is a 36 y/o WF, with 4 children (16, 13, 12 and 9 y/o) who are with their father now. She lives with and children. Unemployed Poor historian due to extreme discomfort due to opioid withdrawal She denies illicit drug or alcohol use or buying from the streets. She started with opiate painkillers 6 years ago due to back surgery and since then has been using increasingly. She was kept on Fentanyl (filled in June)and Oxycodone 15 mg (#120 filled 3 weeks ago). She admits to oversusing but b/c of pain and also her doctor did not renew her fentanyl and os she is in withdrawal now. She cannot even sit still. No past detox or rehab Denies all drugs and alcohol Past psych hx: Depression and anxiety. Takes xanax 0.5 daily, no admissions Medical hx: DM, HTN?, disc hernia Family psych hx: Mother also had depression/anxiety - Diagnosis (1) Opiate dependence Current Visit: No Status: Acute - Final Diagnosis (DSM 5) Condition upon Discharge: FAIR Disposition: HOME/ ROUTINE Follow-up Treatment Plan: Correction: Vit D 50,000 is called in as #4, not #30 Prescriptions/Medication Reconciliation: Ergocalciferol [Drisdol 50,000 Intl Units Cap] 1 cap PO Q7D #30 cap hydrOXYzine HCl [Atarax] 50 mg PO BID PRN #60 tab PRN Reason: Anxiety Losartan [Cozaar] 50 mg PO DAILY #30 tab metFORMIN [glucOPHAGE] 500 mg PO BID #60 tab Metoprolol Tartrate [Lopressor] 50 mg PO BID #60 tab Nitrofurantoin Macrocrystals [Macrobid] 100 mg PO Q12H #10 cap Pantoprazole [Protonix EC Tab] 20 mg PO DAILY #30 ect Rosuvastatin Calcium [Crestor] 5 mg PO HS #30 tab traZODone [Desyrel] 100 mg PO HS PRN #30 tab PRN Reason: Insomnia
== END 2017-08-28 11:00 | disposition home or self-care (01) | DRG 895 ==
LOC: C.ER 05:43 → C.7D 11:37
PROVIDERS: ADMIT Psychiatry & Neurology Psychiatry; ATTEND Psychiatry & Neurology Psychiatry
PROC: HZ52ZZZ Individual Psychotherapy for Substance Abuse Treatment, Cognitive-Behavioral (ICD-10-PCS; principal; 2017-08-24)
PROC: HZ59ZZZ Individual Psychotherapy for Substance Abuse Treatment, Supportive (ICD-10-PCS; 2017-08-24)
PROC: HZ56ZZZ Individual Psychotherapy for Substance Abuse Treatment, Psychoeducation (ICD-10-PCS; 2017-08-24)
PROC: HZ57ZZZ Individual Psychotherapy for Substance Abuse Treatment, Motivational Enhancement (ICD-10-PCS; 2017-08-24)
PROC: HZ2ZZZZ Detoxification Services for Substance Abuse Treatment (ICD-10-PCS; 2017-08-24)
DX: F11.23 Opioid dependence with withdrawal (principal); F41.9 Anxiety disorder, unspecified; G89.29 Other chronic pain; E11.22 Type 2 diabetes mellitus with diabetic chronic kidney disease; E78.00 Pure hypercholesterolemia, unspecified; I12.9 Hypertensive chronic kidney disease with stage 1 through stage 4 chronic kidney disease, or unspecified chronic kidney disease; N18.9 Chronic kidney disease, unspecified; D64.9 Anemia, unspecified; E66.9 Obesity, unspecified; F32.9 Major depressive disorder, single episode, unspecified; M54.5 Low back pain